=== PATIENT | male | born 1955 | race Two or more races ===

== ENCOUNTER 2025-03-29 07:00 | Day surgery (SDC) | payer OTHER ==
[~2025-03-29] VITALS: Ht 165.1 cm; Wt 86.4 kg
[~2025-03-29 07:00] MED LIST: OMEP-148 PO
[2025-03-29] MEDS ORDERED: BENZOCAINE 20% 50 MCG/SPRAY 57 GM TP ONE (07:01)
[2025-03-29] MEDS ORDERED: ALBUTEROL SULFATE 2.5 MG/0.5 ML NEB SOLUTION NEB ONE (07:01)
[2025-03-29] MEDS ORDERED: LIDOCAINE 4% 50 ML SOLUTION TP ONE (07:01)
[2025-03-29] MEDS ORDERED: LIDOCAINE 2% 11 ML JELLY TP ONE (07:01)
[2025-03-29] MEDS ORDERED: SODIUM CHLORIDE 0.9% 1,000 ML ONE (07:42)
[2025-03-29] MEDS: SODIUM CHLORIDE 0.9% 1,000 ML IV ONE (08:13)
[2025-03-29] MEDS ORDERED: MIDAZOLAM HCL 2 MG/2 ML VIAL ONE (08:21)
[2025-03-29] MEDS ORDERED: FentaNYL CITRATE PF 100 MCG/2 ML VIAL ONE (08:22)
[2025-03-29 09:15] VITALS: PULSE 64; RESP 18; O2SAT 97
[2025-03-29] MEDS ORDERED: MethylPREDNISolone SOD SUCC 125 MG/2 ML VIAL ONE (09:24)
[2025-03-29] MEDS: MethylPREDNISolone SOD SUCC 125 MG/2 ML VIAL IVP ONE (09:54)
== END 2025-03-29 13:00 | disposition home or self-care (01) ==
LOC: SURGERY 07:00
PROVIDERS: ATTEND Internal Medicine Critical Care Medicine
DX: R05.3 Chronic cough (principal); R04.2 Hemoptysis; J38.4 Edema of larynx; B37.0 Candidal stomatitis; J47.9 Bronchiectasis, uncomplicated; Z98.890 Other specified postprocedural states
CPT/HCPCS: 31623; 87206; 87101; 87220; 87070; 88108; 31624; 71045; 87015; J3010; J2250; J2919; J7030; J7613; Z7610